=== PATIENT | female | born 1940 | race Caucasian/White ===

== ENCOUNTER 2017-10-04 16:39 | Inpatient (IN) | payer MEDICARE, OTHER, MEDICAID ==
[2017-10-04] MEDS: ONDANSETRON 4 MG INJ IV (20:51)
[2017-10-04] MEDS: SOD CHLORIDE 0.9% 500 ML IV (20:51)
[2017-10-04] MEDS: LORAZEPAM 0.5 MG TAB PO (20:51)
[2017-10-04 21:10] LABS: ADD MAN DIFF? NO
[2017-10-04 21:13] LABS: BASOPHILS % 0.6 % (0.0-2.0); EOSINOPHILS # 0.1 10^3/ul (0.0-0.5); EOSINOPHILS % 0.8 % (0.0-7.0); HEMATOCRIT 35.7 % (37.0-47.0); HEMOGLOBIN 11.7 g/dl (12.0-16.0); MEAN CORPUSCULAR HEMOGLOBIN 27.8 pg (29.0-33.0); MEAN CORPUSCULAR HGB CONC 32.8 g/dl (32.0-37.0); MEAN CORPUSCULAR VOLUME 84.8 fl (82.0-101.0); MONOCYTE # 0.7 10^3/ul (0.3-0.9); NEUTROPHIL # 4.5 10^3/ul (1.6-7.5); NEUTROPHILS % 61.3 % (39.0-77.0); PLATELET COUNT 215 10^3/UL (140-415); RED BLOOD COUNT 4.21 10^6/ul (4.20-5.40); RED CELL DISTRIBUTION WIDTH 13.2 % (11.5-14.5)
[2017-10-04 21:13] LABS: WHITE BLOOD COUNT 7.3 10^3/ul (4.8-10.8)
[2017-10-04 21:33] LABS: ALANINE AMINOTRANSFERASE 23 IU/L (13-69); ALBUMIN 4.3 g/dl (3.3-4.9); ALBUMIN/GLOBULIN RATIO 1.26; ALKALINE PHOSPHATASE 55 IU/L (42-121); ANION GAP 16 (8-16); ASPARTATE AMINO TRANSFERASE 20 IU/L (15-46); BILIRUBIN,INDIRECT 0.4 mg/dl (0-1.1); BILIRUBIN,TOTAL 0.4 mg/dl (0.2-1.3); BLOOD UREA NITROGEN 19 mg/dl (7-20); CALCIUM 9.6 mg/dl (8.4-10.2); CARBON DIOXIDE 26 mmol/L (21-31); CHLORIDE 103 mmol/L (97-110); CREATININE 1.05 mg/dl (0.44-1.00); GLUCOSE 90 mg/dl (70-220); LIPASE 116 U/L (23-300); POTASSIUM 3.4 mmol/L (3.5-5.1); SODIUM 142 mmol/L (135-144); TOTAL PROTEIN 7.7 g/dl (6.1-8.1)
[2017-10-04 21:44] LABS: TROPONIN-I < 0.012 ng/ml (0.00-0.12)
[2017-10-04] MEDS: IBUPROFEN 600 MG TAB PO (22:00)
[2017-10-04 22:29] LABS: ADD UMIC YES; UR ASCORBIC ACID NEGATIVE (NEGATIVE); UR BACTERIA MANY /HPF (NONE SEEN); UR BILIRUBIN (Dip) NEGATIVE (NEGATIVE); UR BLOOD (Dip) 1+ mg/dL (NEGATIVE); UR CLARITY SLIGHTLY CLOUDY (CLEAR); UR COLOR YELLOW (YELLOW); UR GLUCOSE (Dip) NEGATIVE (NEGATIVE); UR KETONES (Dip) TRACE mg/dL (NEGATIVE); UR LEUKOCYTE ESTERASE (Dip) 3+ Leu/ul (NEGATIVE); UR MUCUS FEW /HPF (NONE SEEN); UR NITRITE (Dip) NEGATIVE (NEGATIVE); UR RBC 1 /HPF (0-5); UR SPECIFIC GRAVITY (Dip) 1.011 (1.003-1.030); UR TOTAL PROTEIN (Dip) NEGATIVE (NEGATIVE); UR UROBILINOGEN (Dip) NEGATIVE (NEGATIVE); UR WBC 27 /HPF (0-5)
[2017-10-04] MEDS: CEFTRIAXONE 1 GM/50 ML (PMX) 50 ML IVPB (23:19)
[2017-10-05] MEDS ORDERED: NACL 0.9% 3 ML SYG IV (01:00)
[2017-10-05] MEDS: DEXTROSE 50% 50 ML SYRINGE IV (01:54)
[2017-10-05] MEDS: PANTOPRAZOLE 40 MG INJ IV ×2 (01:54→18:47)
[2017-10-05] MEDS: AL HYDROX/MG HYDROX/SIMETH 30 ML CUP PO (01:54)
[2017-10-05] MEDS: SOD CHLORIDE 0.9% 1,000 ML IV ×2 (01:55→13:53)
[2017-10-05] MEDS: ACCU-CHEK XX (02:10)
[2017-10-05] MEDS ORDERED: DEXTROSE 50% 50 ML SYRINGE IV ×2 (04:00)
[2017-10-05] MEDS ORDERED: GLUCOSE GEL 15 GRAM TUBE BUCCAL (04:00)
[2017-10-05] MEDS ORDERED: GLUCAGON 1 MG INJ IM (04:00)
[2017-10-05] MEDS ORDERED: GLUCOSE GEL 15 GRAM TUBE PO ×2 (04:00)
[2017-10-05] MEDS: INSULIN ASPART [NOVOLOG] 3 ML PEN SC ×5 (05:00→21:00)
[2017-10-05 05:08] LABS: ADD MAN DIFF? NO
[2017-10-05 05:12] LABS: BASOPHIL # 0.1 10^3/ul (0.0-0.1); BASOPHILS % 0.7 % (0.0-2.0); EOSINOPHILS # 0.1 10^3/ul (0.0-0.5); EOSINOPHILS % 1.3 % (0.0-7.0); HEMATOCRIT 33.8 % (37.0-47.0); HEMOGLOBIN 11.4 g/dl (12.0-16.0); LYMPHOCYTES # 1.9 10^3/ul (0.8-2.9); LYMPHOCYTES % 28.2 % (15.0-51.0); MEAN CORPUSCULAR HEMOGLOBIN 28.3 pg (29.0-33.0); MEAN CORPUSCULAR HGB CONC 33.7 g/dl (32.0-37.0); MEAN CORPUSCULAR VOLUME 83.9 fl (82.0-101.0); MEAN PLATELET VOLUME 11.7 fl (7.4-10.4); MONOCYTE # 0.8 10^3/ul (0.3-0.9); MONOCYTES % 11.4 % (0.0-11.0); NEUTROPHIL # 3.9 10^3/ul (1.6-7.5); NEUTROPHILS % 58.3 % (39.0-77.0); PLATELET COUNT 202 10^3/UL (140-415); RED BLOOD COUNT 4.03 10^6/ul (4.20-5.40); RED CELL DISTRIBUTION WIDTH 13.1 % (11.5-14.5)
[2017-10-05 05:12] LABS: WHITE BLOOD COUNT 6.7 10^3/ul (4.8-10.8)
[2017-10-05] MEDS: ONDANSETRON 4 MG INJ IV ×2 (05:31→15:31)
[2017-10-05 05:33] LABS: HDL CHOLESTEROL 46 mg/dl (33-92); LDL CHOLESTEROL,CALCULATED 164 mg/dl; TRIGLYCERIDES 99 mg/dl (0-149)
[2017-10-05 05:33] LABS: CHOLESTEROL 230 mg/dl (100-200)
[2017-10-05 05:38] LABS: B-TYPE NATRIURETIC PEPTIDE 134 PG/ML (0-450)
[2017-10-05 05:41] LABS: CK-MB 0.48 ng/ml (0.0-2.4)
[2017-10-05 05:44] LABS: TROPONIN-I < 0.012 ng/ml (0.00-0.12)
[2017-10-05 05:45] LABS: CREATINE KINASE 48 IU/L (23-200)
[2017-10-05 05:49] LABS: ALANINE AMINOTRANSFERASE 25 IU/L (13-69); ALBUMIN 3.8 g/dl (3.3-4.9); ALBUMIN/GLOBULIN RATIO 1.11; ALKALINE PHOSPHATASE 52 IU/L (42-121); ANION GAP 15 (8-16); ASPARTATE AMINO TRANSFERASE 18 IU/L (15-46); BILIRUBIN,INDIRECT 0.4 mg/dl (0-1.1); BILIRUBIN,TOTAL 0.4 mg/dl (0.2-1.3); BLOOD UREA NITROGEN 19 mg/dl (7-20); CALCIUM 9.4 mg/dl (8.4-10.2); CARBON DIOXIDE 26 mmol/L (21-31); CHLORIDE 107 mmol/L (97-110); GLUCOSE 98 mg/dl (70-220); POTASSIUM 3.5 mmol/L (3.5-5.1); SODIUM 144 mmol/L (135-144); TOTAL PROTEIN 7.2 g/dl (6.1-8.1)
[2017-10-05 08:06] LABS: HEMOGLOBIN A1C 5.8 % (0-5.9)
[2017-10-05] MEDS ORDERED: FAMOTIDINE 20 MG INJ IV (09:00)
[2017-10-05] MEDS: PROPOFOL 20 ML (13:53)
[2017-10-05] MEDS ORDERED: MEPERIDINE 25 MG INJ IV (14:30)
[2017-10-05] MEDS ORDERED: OXYCODONE/ACETAMINOPHEN (5/325) TAB PO ×2 (14:30)
[2017-10-05] MEDS ORDERED: MIDAZOLAM 1 MG/ML 2 ML INJ IV (14:30)
[2017-10-05] MEDS ORDERED: ONDANSETRON 4 MG INJ IV (14:30)
[2017-10-05] MEDS ORDERED: EPHEDrine SULFATE 50 MG/5 ML SYG IV (14:30)
[2017-10-05] MEDS ORDERED: DIPHENHYDRAMINE 50 MG INJ IV (14:30)
[2017-10-05] MEDS ORDERED: LABETALOL HCL 20MG INJ IV (14:30)
[2017-10-05] MEDS ORDERED: METOCLOPRAMIDE 10 MG INJ IV (14:30)
[2017-10-05] MEDS ORDERED: FENTAnyl 50 MCG/ML VIAL IV ×3 (14:30)
[2017-10-05] MEDS ORDERED: hydrALAzine 20 MG INJ IV (14:30)
[2017-10-05] MEDS: DOCUSATE SODIUM 100 MG CAP PO (15:32)
[2017-10-05] MEDS: POLYETHYLENE GLYCOL 17 GM PACKET PO (15:32)
[2017-10-05] MEDS: ACETAMINOPHEN 325 MG TAB PO (15:32)
[2017-10-05] MEDS: CEFTRIAXONE 1 GM/50 ML (PMX) 50 ML IVPB (23:13)
[2017-10-06] MEDS: INSULIN ASPART [NOVOLOG] 3 ML PEN SC ×6 (01:00→21:00)
[2017-10-06] MEDS: ACCU-CHEK XX (02:00)
[2017-10-06] MEDS: SOD CHLORIDE 0.9% 1,000 ML IV ×3 (03:13→21:44)
[2017-10-06] MEDS: PANTOPRAZOLE 40 MG INJ IV ×2 (05:36→17:39)
[2017-10-06 05:37] LABS: ADD MAN DIFF? NO
[2017-10-06 05:47] LABS: WHITE BLOOD COUNT 6.3 10^3/ul (4.8-10.8)
[2017-10-06 05:47] LABS: BASOPHILS % 0.5 % (0.0-2.0); EOSINOPHILS # 0.1 10^3/ul (0.0-0.5); EOSINOPHILS % 1.9 % (0.0-7.0); HEMATOCRIT 35.6 % (37.0-47.0); LYMPHOCYTES # 2.1 10^3/ul (0.8-2.9); LYMPHOCYTES % 33.1 % (15.0-51.0); MEAN CORPUSCULAR HEMOGLOBIN 28.4 pg (29.0-33.0); MEAN CORPUSCULAR HGB CONC 33.7 g/dl (32.0-37.0); MEAN CORPUSCULAR VOLUME 84.2 fl (82.0-101.0); MEAN PLATELET VOLUME 12.8 fl (7.4-10.4); MONOCYTE # 0.8 10^3/ul (0.3-0.9); MONOCYTES % 11.9 % (0.0-11.0); NEUTROPHIL # 3.3 10^3/ul (1.6-7.5); NEUTROPHILS % 52.3 % (39.0-77.0); RED BLOOD COUNT 4.23 10^6/ul (4.20-5.40); RED CELL DISTRIBUTION WIDTH 12.9 % (11.5-14.5)
[2017-10-06 05:50] LABS: PLATELET COUNT 157 10^3/UL (140-415); POSITIVE DIFF @See below
[2017-10-06 06:10] LABS: ALBUMIN 3.9 g/dl (3.3-4.9); ANION GAP 15 (8-16); BLOOD UREA NITROGEN 16 mg/dl (7-20); CALCIUM 9.3 mg/dl (8.4-10.2); CARBON DIOXIDE 25 mmol/L (21-31); CHLORIDE 108 mmol/L (97-110); CREATININE 0.95 mg/dl (0.44-1.00); GLUCOSE 85 mg/dl (70-220); SODIUM 144 mmol/L (135-144)
[2017-10-06] MEDS: POLYETHYLENE GLYCOL 17 GM PACKET PO (08:46)
[2017-10-06] MEDS: DOCUSATE SODIUM 100 MG CAP PO (08:46)
[2017-10-06] MEDS: ONDANSETRON 4 MG INJ IV (10:49)
[2017-10-06] MEDS: BARIUM SULF 2% 450 ML BTL (BERRY SMOOTHIE) PO (11:00)
[2017-10-06] MEDS: SUCRALFATE (100 MG/ML) 10ML CUP PO ×3 (13:00→20:57)
[2017-10-06] MEDS: IOHEXOL 300MG/ML 150 ML BTL (14:13)
[2017-10-06] MEDS: SOD CHLORIDE 0.9% 100 ML (14:13)
[2017-10-06 14:55] LABS: OCCULT BLOOD STOOL NEGATIVE (NEGATIVE)
[2017-10-06 14:56] LABS: CREATININE, RANDOM URINE 124 mg/dL (20-320); MICROALBUMIN <0.2 mg/dL; MICROALBUMIN/CREATININE RATIO NOTE (<30)
[2017-10-06] MEDS: hydrALAzine 20 MG INJ IV (21:05)
[2017-10-06] MEDS: CEFTRIAXONE 1 GM/50 ML (PMX) 50 ML IVPB (22:54)
[2017-10-06] MEDS: LORAZEPAM 2 MG INJ IV (23:13)
[2017-10-07] MEDS: ACCU-CHEK XX (01:57)
[2017-10-07 04:46] LABS: ADD MAN DIFF? NO
[2017-10-07 04:50] LABS: WHITE BLOOD COUNT 5.1 10^3/ul (4.8-10.8)
[2017-10-07 04:50] LABS: BASOPHILS % 0.8 % (0.0-2.0); EOSINOPHILS # 0.1 10^3/ul (0.0-0.5); EOSINOPHILS % 2.2 % (0.0-7.0); HEMATOCRIT 33.3 % (37.0-47.0); HEMOGLOBIN 10.9 g/dl (12.0-16.0); LYMPHOCYTES # 2.1 10^3/ul (0.8-2.9); LYMPHOCYTES % 41.2 % (15.0-51.0); MEAN CORPUSCULAR HEMOGLOBIN 27.9 pg (29.0-33.0); MEAN CORPUSCULAR HGB CONC 32.7 g/dl (32.0-37.0); MEAN CORPUSCULAR VOLUME 85.2 fl (82.0-101.0); MONOCYTE # 0.6 10^3/ul (0.3-0.9); MONOCYTES % 12.1 % (0.0-11.0); NEUTROPHIL # 2.2 10^3/ul (1.6-7.5); NEUTROPHILS % 43.5 % (39.0-77.0); PLATELET COUNT 191 10^3/UL (140-415); RED BLOOD COUNT 3.91 10^6/ul (4.20-5.40); RED CELL DISTRIBUTION WIDTH 13.1 % (11.5-14.5)
[2017-10-07 05:35] LABS: ANION GAP 16 (8-16); BLOOD UREA NITROGEN 10 mg/dl (7-20); CALCIUM 8.8 mg/dl (8.4-10.2); CARBON DIOXIDE 25 mmol/L (21-31); CHLORIDE 111 mmol/L (97-110); CREATININE 0.96 mg/dl (0.44-1.00); GLUCOSE 95 mg/dl (70-220); MAGNESIUM 1.9 mg/dl (1.7-2.5); PHOSPHORUS 3.4 mg/dl (2.5-4.9); POTASSIUM 3.7 mmol/L (3.5-5.1); SODIUM 148 mmol/L (135-144)
[2017-10-07] MEDS: PANTOPRAZOLE 40 MG INJ IV (06:08)
[2017-10-07] MEDS: INSULIN ASPART [NOVOLOG] 3 ML PEN SC ×4 (07:20→20:55)
[2017-10-07] MEDS: SUCRALFATE (100 MG/ML) 10ML CUP PO ×4 (08:20→20:55)
[2017-10-07] MEDS: DOCUSATE SODIUM 100 MG CAP PO (08:20)
[2017-10-07] MEDS: POLYETHYLENE GLYCOL 17 GM PACKET PO (08:20)
[2017-10-07] MEDS: SOD CHLORIDE 0.9% 1,000 ML IV (12:16)
[2017-10-07] MEDS: LORAZEPAM 0.5 MG TAB PO ×2 (14:13→21:50)
[2017-10-07] MEDS: PANTOPRAZOLE (EC) 40 MG TAB PO (18:05)
[2017-10-07] MEDS: AMOXICILLIN 500 MG CAP PO (20:55)
[2017-10-07] MEDS: CLARITHROMYCIN 500 MG TAB PO (20:56)
[2017-10-08] MEDS: ACCU-CHEK XX (02:00)
[2017-10-08] MEDS: ONDANSETRON 4 MG INJ IV (04:27)
[2017-10-08 05:11] LABS: ADD MAN DIFF? NO; BASOPHILS % 0.6 % (0.0-2.0); EOSINOPHILS # 0.2 10^3/ul (0.0-0.5); EOSINOPHILS % 2.4 % (0.0-7.0); HEMATOCRIT 35.1 % (37.0-47.0); HEMOGLOBIN 11.6 g/dl (12.0-16.0); LYMPHOCYTES # 2.3 10^3/ul (0.8-2.9); LYMPHOCYTES % 36.9 % (15.0-51.0); MEAN CORPUSCULAR VOLUME 84.8 fl (82.0-101.0); MEAN PLATELET VOLUME 11.8 fl (7.4-10.4); MONOCYTE # 0.7 10^3/ul (0.3-0.9); MONOCYTES % 11.4 % (0.0-11.0); NEUTROPHILS % 48.5 % (39.0-77.0); PLATELET COUNT 223 10^3/UL (140-415); RED BLOOD COUNT 4.14 10^6/ul (4.20-5.40)
[2017-10-08 05:11] LABS: WHITE BLOOD COUNT 6.2 10^3/ul (4.8-10.8)
[2017-10-08] MEDS: ACETAMINOPHEN 325 MG TAB PO (05:44)
[2017-10-08] MEDS: PANTOPRAZOLE (EC) 40 MG TAB PO ×2 (05:44→18:37)
[2017-10-08] MEDS: hydrALAzine 20 MG INJ IV (05:49)
[2017-10-08 05:55] LABS: ANION GAP 16 (8-16); BLOOD UREA NITROGEN 11 mg/dl (7-20); CALCIUM 9.5 mg/dl (8.4-10.2); CARBON DIOXIDE 25 mmol/L (21-31); CHLORIDE 108 mmol/L (97-110); CREATININE 1.04 mg/dl (0.44-1.00); GLUCOSE 102 mg/dl (70-220); MAGNESIUM 1.9 mg/dl (1.7-2.5); PHOSPHORUS 3.3 mg/dl (2.5-4.9); POTASSIUM 3.9 mmol/L (3.5-5.1); SODIUM 145 mmol/L (135-144)
[2017-10-08] MEDS: INSULIN ASPART [NOVOLOG] 3 ML PEN SC ×4 (07:20→21:00)
[2017-10-08] MEDS: CLARITHROMYCIN 500 MG TAB PO ×2 (08:54→21:36)
[2017-10-08] MEDS: POLYETHYLENE GLYCOL 17 GM PACKET PO (08:54)
[2017-10-08] MEDS: SUCRALFATE (100 MG/ML) 10ML CUP PO ×4 (08:54→21:37)
[2017-10-08] MEDS: DOCUSATE SODIUM 100 MG CAP PO (08:54)
[2017-10-08] MEDS: AMOXICILLIN 500 MG CAP PO ×3 (09:00→21:36)
[2017-10-08] MEDS: LORAZEPAM 0.5 MG TAB PO ×2 (10:49→23:15)
[2017-10-08] MEDS: HYDROCODONE/APAP (5/325) TAB PO ×2 (12:51→21:36)
[2017-10-08] MEDS: LISINOPRIL 5 MG TAB PO (12:51)
[2017-10-08 13:10] LABS: URIC ACID 5.1 mg/dl (3.1-7.9)
[2017-10-08] MEDS: CELECOXIB 100 MG CAP PO (21:36)
[2017-10-09] MEDS: ACCU-CHEK XX (02:00)
[2017-10-09 05:38] LABS: ADD MAN DIFF? NO
[2017-10-09 05:45] LABS: WHITE BLOOD COUNT 7.1 10^3/ul (4.8-10.8)
[2017-10-09 05:45] LABS: BASOPHILS % 0.6 % (0.0-2.0); EOSINOPHILS # 0.2 10^3/ul (0.0-0.5); EOSINOPHILS % 2.1 % (0.0-7.0); HEMATOCRIT 32.5 % (37.0-47.0); HEMOGLOBIN 10.7 g/dl (12.0-16.0); LYMPHOCYTES # 2.1 10^3/ul (0.8-2.9); LYMPHOCYTES % 30.2 % (15.0-51.0); MEAN CORPUSCULAR HEMOGLOBIN 28.2 pg (29.0-33.0); MEAN CORPUSCULAR HGB CONC 32.9 g/dl (32.0-37.0); MEAN CORPUSCULAR VOLUME 85.8 fl (82.0-101.0); MEAN PLATELET VOLUME 11.7 fl (7.4-10.4); MONOCYTE # 0.9 10^3/ul (0.3-0.9); MONOCYTES % 12.2 % (0.0-11.0); NEUTROPHIL # 3.8 10^3/ul (1.6-7.5); NEUTROPHILS % 54.5 % (39.0-77.0); PLATELET COUNT 217 10^3/UL (140-415); RED BLOOD COUNT 3.79 10^6/ul (4.20-5.40); RED CELL DISTRIBUTION WIDTH 13.2 % (11.5-14.5)
[2017-10-09 05:58] LABS: ANION GAP 15 (8-16); BLOOD UREA NITROGEN 21 mg/dl (7-20); CARBON DIOXIDE 26 mmol/L (21-31); CHLORIDE 106 mmol/L (97-110); CREATININE 1.44 mg/dl (0.44-1.00); GLUCOSE 105 mg/dl (70-220); MAGNESIUM 1.8 mg/dl (1.7-2.5); PHOSPHORUS 4.3 mg/dl (2.5-4.9); POTASSIUM 3.8 mmol/L (3.5-5.1); SODIUM 143 mmol/L (135-144)
[2017-10-09] MEDS: PANTOPRAZOLE (EC) 40 MG TAB PO ×2 (06:03→18:15)
[2017-10-09] MEDS: INSULIN ASPART [NOVOLOG] 3 ML PEN SC ×4 (08:30→21:00)
[2017-10-09] MEDS: POLYETHYLENE GLYCOL 17 GM PACKET PO (09:30)
[2017-10-09] MEDS: SUCRALFATE (100 MG/ML) 10ML CUP PO ×4 (09:30→21:07)
[2017-10-09] MEDS: CELECOXIB 100 MG CAP PO (09:31)
[2017-10-09] MEDS: DOCUSATE SODIUM 100 MG CAP PO (09:31)
[2017-10-09] MEDS: CLARITHROMYCIN 500 MG TAB PO ×2 (09:31→21:07)
[2017-10-09] MEDS: LISINOPRIL 5 MG TAB PO (09:32)
[2017-10-09] MEDS: AMOXICILLIN 500 MG CAP PO ×3 (09:34→21:07)
[2017-10-09] MEDS: SOD CHLORIDE 0.45% 1,000 ML IV (14:18)
[2017-10-09] MEDS ORDERED: CIPROFLOXACIN 250 MG TAB PO (18:00)
[2017-10-10] MEDS: LORAZEPAM 0.5 MG TAB PO (01:34)
[2017-10-10] MEDS: ACCU-CHEK XX (02:00)
[2017-10-10 05:08] LABS: ADD MAN DIFF? NO
[2017-10-10 05:13] LABS: WHITE BLOOD COUNT 5.8 10^3/ul (4.8-10.8)
[2017-10-10 05:13] LABS: BASOPHILS % 0.3 % (0.0-2.0); EOSINOPHILS # 0.2 10^3/ul (0.0-0.5); EOSINOPHILS % 2.6 % (0.0-7.0); HEMATOCRIT 32.2 % (37.0-47.0); HEMOGLOBIN 10.6 g/dl (12.0-16.0); LYMPHOCYTES # 2.2 10^3/ul (0.8-2.9); LYMPHOCYTES % 37.3 % (15.0-51.0); MEAN CORPUSCULAR HEMOGLOBIN 27.9 pg (29.0-33.0); MEAN CORPUSCULAR HGB CONC 32.9 g/dl (32.0-37.0); MEAN CORPUSCULAR VOLUME 84.7 fl (82.0-101.0); MEAN PLATELET VOLUME 11.5 fl (7.4-10.4); MONOCYTE # 0.6 10^3/ul (0.3-0.9); MONOCYTES % 10.4 % (0.0-11.0); NEUTROPHIL # 2.8 10^3/ul (1.6-7.5); NEUTROPHILS % 49.2 % (39.0-77.0); PLATELET COUNT 197 10^3/UL (140-415); RED CELL DISTRIBUTION WIDTH 13.3 % (11.5-14.5)
[2017-10-10 05:28] LABS: ANION GAP 15 (8-16); BLOOD UREA NITROGEN 21 mg/dl (7-20); CALCIUM 9.1 mg/dl (8.4-10.2); CARBON DIOXIDE 25 mmol/L (21-31); CHLORIDE 109 mmol/L (97-110); GLUCOSE 101 mg/dl (70-220); MAGNESIUM 1.9 mg/dl (1.7-2.5); PHOSPHORUS 3.5 mg/dl (2.5-4.9); POTASSIUM 4.1 mmol/L (3.5-5.1); SODIUM 145 mmol/L (135-144)
[2017-10-10] MEDS: PANTOPRAZOLE (EC) 40 MG TAB PO (06:24)
[2017-10-10] MEDS: INSULIN ASPART [NOVOLOG] 3 ML PEN SC ×2 (07:20→11:10)
[2017-10-10] MEDS: POLYETHYLENE GLYCOL 17 GM PACKET PO (09:00)
[2017-10-10] MEDS: SUCRALFATE (100 MG/ML) 10ML CUP PO ×2 (10:24→12:57)
[2017-10-10] MEDS: CLARITHROMYCIN 500 MG TAB PO (10:24)
[2017-10-10] MEDS: AMOXICILLIN 500 MG CAP PO ×2 (10:24→12:57)
[2017-10-10] MEDS: DOCUSATE SODIUM 100 MG CAP PO (10:25)
== END 2017-10-10 14:10 | disposition home health service (06) | DRG 392 ==
LOC: MS1 23:03 → E/R 16:39
PROC: 0DB58ZX Excision of Esophagus, Via Natural or Artificial Opening Endoscopic, Diagnostic (ICD-10-PCS; principal; 2017-10-05 13:30)
PROC: 0DB68ZX Excision of Stomach, Via Natural or Artificial Opening Endoscopic, Diagnostic (ICD-10-PCS; 2017-10-05 13:30)
DX: K29.70 Gastritis, unspecified, without bleeding (principal); N39.0 Urinary tract infection, site not specified; N17.9 Acute kidney failure, unspecified; E87.0 Hyperosmolality and hypernatremia; M34.1 CR(E)ST syndrome; E11.9 Type 2 diabetes mellitus without complications; I10 Essential (primary) hypertension; K59.00 Constipation, unspecified; K31.7 Polyp of stomach and duodenum; K21.0 Gastro-esophageal reflux disease with esophagitis; E66.9 Obesity, unspecified; Z68.28 Body mass index [BMI] 28.0-28.9, adult; E86.0 Dehydration; E87.6 Hypokalemia; B96.81 Helicobacter pylori [H. pylori] as the cause of diseases classified elsewhere; Z79.4 Long term (current) use of insulin
CPT/HCPCS: 36415; 71045; 71260; 73630-LT; 74018; 74177; 80048; 80053; 80061; 80069; 81001; 82043; 82270; 82550; 82553; 82962; 83036; 83690; 83735; 83880; 84100; 84443; 84484; 84560; 85025; 87086; 88305; 88312; 93005; 96374; 96375; 97161; 99217; 99285-25